=== PATIENT | female | born 1965 | race Caucasian/White ===

== ENCOUNTER → 2016-08-31 | Outpatient (CLI) | payer BC | LOC: MC.RAD 07:52 | DX: Z12.31 Encounter for screening mammogram for malignant neoplasm of breast (principal) ==

== ENCOUNTER → 2017-12-04 | Outpatient (CLI) | payer BC | LOC: MC.RAD 07:00 | DX: Z12.31 Encounter for screening mammogram for malignant neoplasm of breast (principal) ==

== ENCOUNTER → 2019-02-26 | Outpatient (CLI) | payer BC | LOC: MC.RAD 06:54 | DX: Z12.31 Encounter for screening mammogram for malignant neoplasm of breast (principal) ==

== ENCOUNTER → 2020-11-02 | Outpatient (CLI) | payer BC | LOC: MC.RAD 06:57 | DX: Z12.31 Encounter for screening mammogram for malignant neoplasm of breast (principal); R92.1 Mammographic calcification found on diagnostic imaging of breast ==

== ENCOUNTER → 2020-11-06 | Outpatient (CLI) | payer BC | LOC: MC.RAD 07:48 | DX: R92.1 Mammographic calcification found on diagnostic imaging of breast (principal) ==

== ENCOUNTER → 2020-11-25 | Outpatient (CLI) | payer BC | LOC: MC.RAD 07:00 | DX: R92.0 Mammographic microcalcification found on diagnostic imaging of breast (principal) ==

== ENCOUNTER 2021-04-26 12:45 | Outpatient (RCR) | payer BC | END 2021-05-07 | disposition home or self-care (01) | LOC: WSPT | DX: C50.411 Malignant neoplasm of upper-outer quadrant of right female breast (principal) ==

== ENCOUNTER 2021-06-30 09:30 | Outpatient (RCR) | payer BC | END 2021-07-05 | disposition home or self-care (01) | LOC: WSPT | DX: Z23 Encounter for immunization (principal); C50.411 Malignant neoplasm of upper-outer quadrant of right female breast; I10 Essential (primary) hypertension ==

== ENCOUNTER 2021-07-30 08:00 | Outpatient (RCR) | payer BC | END 2021-08-05 | disposition home or self-care (01) | LOC: WSPT | DX: C50.411 Malignant neoplasm of upper-outer quadrant of right female breast (principal) ==

== ENCOUNTER 2021-10-01 08:29 | Outpatient (RCR) | payer BC | END 2021-10-05 | disposition home or self-care (01) | LOC: WSPT | DX: C50.411 Malignant neoplasm of upper-outer quadrant of right female breast (principal) ==

== ENCOUNTER 2021-12-15 07:55 | Outpatient (RCR) | payer BC | END 2022-01-05 | disposition home or self-care (01) | LOC: WSPT | DX: C50.411 Malignant neoplasm of upper-outer quadrant of right female breast (principal) ==

== ENCOUNTER 2022-08-09 09:41 | Outpatient (RCR) | payer BC | END 2022-09-04 | disposition home or self-care (01) | LOC: WSPT | DX: C50.411 Malignant neoplasm of upper-outer quadrant of right female breast (principal) ==

== ENCOUNTER 2023-01-10 08:00 | Outpatient (RCR) | payer BC | END 2023-02-04 | disposition home or self-care (01) | LOC: WSPT | DX: C50.411 Malignant neoplasm of upper-outer quadrant of right female breast (principal); I10 Essential (primary) hypertension ==

== ENCOUNTER 2023-05-26 08:29 | Outpatient (RCR) | payer BC | END 2023-06-07 | disposition home or self-care (01) | LOC: WSPT | DX: C50.411 Malignant neoplasm of upper-outer quadrant of right female breast (principal); Z90.11 Acquired absence of right breast and nipple ==

== ENCOUNTER 2023-10-03 15:00 | Outpatient (RCR) | payer BC | END 2023-10-06 | disposition home or self-care (01) | LOC: WSPT | DX: C50.411 Malignant neoplasm of upper-outer quadrant of right female breast (principal); Z90.11 Acquired absence of right breast and nipple ==